=== PATIENT | female | born 1940 | race Caucasian/White ===

== ENCOUNTER 2018-07-11 11:52 | Inpatient (IN) | payer MEDICARE ==
[~2018-07-11] VITALS: Ht 167.6 cm; Wt 75.2 kg
[~2018-07-11 11:52] MED LIST: ACETAMINOPHEN 325 MG TABLET PO PRN; BISACODYL 10 MG SUPP PR PRN; DOCUSATE 100 MG CAPSULE PO PRN; POLYETHYLENE GLYCOL 17 GM PACKET PO PRN
[2018-07-11 11:55] VITALS: BP 152/84
[2018-07-11] MEDS ORDERED: PLEASE ENTER HEIGHT AND WEIGHT MC SCH (12:00)
[2018-07-11] MEDS ORDERED: OMEP10SU2 PO (12:21)
[2018-07-11] MEDS ORDERED: ACET500T76 PO (12:24)
[2018-07-11] MEDS ORDERED: FLUO20TA25 PO (12:27)
[2018-07-11] MEDS ORDERED: HYDR28CR9 TP (12:29)
[2018-07-11] MEDS ORDERED: BUSP30TA PO (12:30)
[2018-07-11] MEDS ORDERED: LORA1TAB PO (12:32)
[2018-07-11] MEDS ORDERED: ALBU8.5H8 HHN (12:34)
[2018-07-11] MEDS ORDERED: NYST15CR33 TP (12:37)
[2018-07-11] MEDS ORDERED: METO-282 PO (12:40)
[2018-07-11 12:41] VITALS: BP 152/84
[2018-07-11] MEDS ORDERED: L. R1CAP6 PO (12:41)
[2018-07-11] MEDS ORDERED: QUET100T PO (12:42)
[2018-07-11 12:43] LABS: MEAN CORPUSCULAR HEMOGLOBIN 29.4 pg (27.0-34.8); MEAN CORPUSCULAR HGB CONC 31.9 g/dL (32.4-35.8); MEAN CORPUSCULAR VOLUME 92.2 fL (80-100); MEAN PLATELET VOLUME 7.8 fL (7.4-10.4); PLATELET COUNT 324 x10^3/uL (130-400); RED BLOOD COUNT 4.42 x10^6/uL (3.82-5.3); RED CELL DISTRIBUTION WIDTH 14.7 % (9.6-15.2)
[2018-07-11] MEDS ORDERED: CETI10TA18 PO (12:43)
[2018-07-11 12:58] LABS: HCT (SEDRATE) 40.7 % (34.6-47.8)
[2018-07-11 13:00] LABS: ALBUMIN 3.5 g/dL (3.4-5.0); ANION GAP 6 mmol/L (5-15); CALCIUM 8.7 mg/dL (8.5-10.1); CHLORIDE 104 mmol/L (98-107)
[2018-07-11 13:04] LABS: MD YES
[2018-07-11 13:07] LABS: BAND#(MANUAL) 0.14 x10^3/uL; BANDS%(MANUAL) 1 % (0-7); LYMPH#(MANUAL) 11.38 x10^3/uL (1-3.4); LYMPHS% (MANUAL) 79 % (22-44); MONOS#(MANUAL) 0.43 x10^3/uL (0.3-2.7); MONOS% (MANUAL) 3 % (2-9); SEG#(MANUAL) 2.45 x10^3/uL (1.8-6.8); SEGS% (MANUAL) 17 % (42-75)
[2018-07-11 13:11] LABS: <PLATELET ESTIMATE> ADEQUATE; <PLT MORPHOLOGY> NORMAL PLT MORPH; <RBC MORPHOLOGY> NORMAL
[2018-07-11 13:29] LABS: ALANINE AMINOTRANSFERASE 14 U/L (12-78); ALKALINE PHOSPHATASE 82 U/L (45-117); BILIRUBIN,TOTAL 0.5 mg/dL (0.2-1.0); CHOL/HDL RATIO 4.8; CHOLESTEROL, TOTAL 234 mg/dL (140-239); CREATININE 0.79 mg/dL (0.55-1.02); HDL CHOL % 21 % (28-40); HDL CHOLESTEROL (DIRECT) 49 mg/dL (40-60); LDL CHOLESTEROL,CALCULATED 157 mg/dL (54-169); LDL/HDL RATIO 3.2 (0.5-3.0); T4 (THYROXINE) 8.1 mcg/dL (4.8-13.9); TOTAL PROTEIN 7.7 g/dL (6.4-8.2); TRIGLYCERIDES 140 mg/dL (50-200); VLDL CHOLESTEROL 28 mg/dL (0-25)
[2018-07-11 16:27] LABS: MICROSCOPIC AUTO
[2018-07-11 16:31] LABS: CULTURE INDICATED? YES
[2018-07-11 20:04] VITALS: BP 155/90
[2018-07-11] MEDS: NYSTATIN CRM 15GM TP SCH (21:00)
[2018-07-11] MEDS: BUSPIRONE 10 MG TABLET PO SCH (21:11)
[2018-07-11] MEDS: METOPROLOL SUCCINATE 25 MG TAB.ER.24H PO SCH (21:11)
[2018-07-11] MEDS: QUETIAPINE 100MG TABLET PO SCH (21:11)
[2018-07-12 07:19] VITALS: BP 135/81
[2018-07-12] MEDS: OMEPRAZOLE 20 MG CAPSULE.DR PO SCH (08:09)
[2018-07-12] MEDS: METOPROLOL SUCCINATE 25 MG TAB.ER.24H PO SCH ×2 (08:09→20:07)
[2018-07-12] MEDS: BUSPIRONE 10 MG TABLET PO SCH ×2 (08:09→20:07)
[2018-07-12] MEDS: CETIRIZINE 10 MG TABLET PO SCH (08:09)
[2018-07-12] MEDS: FLUOXETINE HCL 20 MG CAPSULE PO SCH (08:09)
[2018-07-12] MEDS: NYSTATIN CRM 15GM TP SCH ×2 (10:00→20:36)
[2018-07-12] MEDS: ALBUTEROL SULFATE 2.5 MG/3 ML HHN PRN (15:26)
[2018-07-12 20:00] VITALS: BP_SYST 122; BP_SYST 128; BP_DIAS 75; BP_DIAS 78
[2018-07-12] MEDS: QUETIAPINE 100MG TABLET PO SCH (20:06)
[2018-07-12] MEDS: LORazepam 1MG TABLET PO PRN (20:18)
[2018-07-13 05:11] LABS: MEAN CORPUSCULAR HGB CONC 32.4 g/dL (32.4-35.8); MEAN CORPUSCULAR VOLUME 92.7 fL (80-100); MEAN PLATELET VOLUME 7.8 fL (7.4-10.4); PLATELET COUNT 304 x10^3/uL (130-400); RED BLOOD COUNT 4.35 x10^6/uL (3.82-5.3); RED CELL DISTRIBUTION WIDTH 14.7 % (9.6-15.2)
[2018-07-13 05:47] LABS: BASOPHILS # (AUTO) 0.02 x10^3/uL (0-0.1); BASOPHILS % (AUTO) 0 % (0-1); EOSINOPHILS # (AUTO) 0.44 x10^3/uL (0-0.4); EOSINOPHILS % (AUTO) 3 % (1-7); LYMPHOCYTES # (AUTO) 9.47 x10^3/uL (1-3.4); LYMPHOCYTES % (AUTO) 69 % (22-44); MD SCAN; MONOCYTES # (AUTO) 0.71 x10^3/uL (0.2-0.8); MONOCYTES % (AUTO) 5 % (2-9); NEUTROPHILS # (AUTO) 3.01 x10^3/uL (1.8-6.8); NEUTROPHILS % (AUTO) 22 % (42-75)
[2018-07-13 07:18] VITALS: BP 132/73
[2018-07-13] MEDS: BUSPIRONE 10 MG TABLET PO SCH ×2 (08:42→20:20)
[2018-07-13] MEDS: FLUOXETINE HCL 20 MG CAPSULE PO SCH (08:42)
[2018-07-13] MEDS: CETIRIZINE 10 MG TABLET PO SCH (08:42)
[2018-07-13] MEDS: METOPROLOL SUCCINATE 25 MG TAB.ER.24H PO SCH ×2 (08:42→20:21)
[2018-07-13] MEDS: OMEPRAZOLE 20 MG CAPSULE.DR PO SCH (08:42)
[2018-07-13] MEDS: NYSTATIN CRM 15GM TP SCH ×2 (09:33→20:21)
[2018-07-13 19:54] VITALS: BP 149/78
[2018-07-13] MEDS: ALBUTEROL SULFATE 2.5 MG/3 ML HHN PRN (19:59)
[2018-07-13] MEDS: QUETIAPINE 100MG TABLET PO SCH (20:21)
[2018-07-13] MEDS: LORazepam 1MG TABLET PO PRN (20:27)
[2018-07-14 05:30] LABS: MEAN CORPUSCULAR HEMOGLOBIN 29.3 pg (27.0-34.8); MEAN CORPUSCULAR HGB CONC 31.5 g/dL (32.4-35.8); MEAN CORPUSCULAR VOLUME 92.9 fL (80-100); MEAN PLATELET VOLUME 7.7 fL (7.4-10.4); PLATELET COUNT 270 x10^3/uL (130-400); RED CELL DISTRIBUTION WIDTH 14.9 % (9.6-15.2)
[2018-07-14 06:20] LABS: MD YES
[2018-07-14 06:22] LABS: BAND#(MANUAL) 0.23 x10^3/uL; BANDS%(MANUAL) 2 % (0-7); BASOS#(MANUAL) 0.12 x10^3/uL (0-0.1); BASOS% (MANUAL) 1 % (0-1); EOS#(MANUAL) 0.47 x10^3/uL (0.0-0.4); EOS% (MANUAL) 4 % (1-7); LYMPH#(MANUAL) 7.02 x10^3/uL (1-3.4); LYMPHS% (MANUAL) 60 % (22-44); MONOS#(MANUAL) 0.23 x10^3/uL (0.3-2.7); MONOS% (MANUAL) 2 % (2-9); SEG#(MANUAL) 3.63 x10^3/uL (1.8-6.8); SEGS% (MANUAL) 31 % (42-75)
[2018-07-14 06:24] LABS: <PLATELET ESTIMATE> ADEQUATE; <PLT MORPHOLOGY> NORMAL PLT MORPH; <RBC MORPHOLOGY> NORMAL
[2018-07-14 07:23] VITALS: BP 125/71
[2018-07-14] MEDS: BUSPIRONE 10 MG TABLET PO SCH ×2 (08:37→20:44)
[2018-07-14] MEDS: METOPROLOL SUCCINATE 25 MG TAB.ER.24H PO SCH ×2 (08:37→20:45)
[2018-07-14] MEDS: FLUOXETINE HCL 20 MG CAPSULE PO SCH (08:37)
[2018-07-14] MEDS: OMEPRAZOLE 20 MG CAPSULE.DR PO SCH (08:37)
[2018-07-14] MEDS: CETIRIZINE 10 MG TABLET PO SCH (08:37)
[2018-07-14] MEDS: NYSTATIN CRM 15GM TP SCH ×2 (08:43→20:45)
[2018-07-14] MEDS: ALBUTEROL SULFATE 2.5 MG/3 ML HHN PRN (18:30)
[2018-07-14 20:00] VITALS: BP 114/70
[2018-07-14] MEDS: QUETIAPINE 100MG TABLET PO SCH (20:44)
[2018-07-14] MEDS: LORazepam 1MG TABLET PO PRN (20:44)
[2018-07-15 07:22] VITALS: BP 138/82
[2018-07-15] MEDS: NYSTATIN CRM 15GM TP SCH ×2 (09:00→20:40)
[2018-07-15] MEDS: OMEPRAZOLE 20 MG CAPSULE.DR PO SCH (09:22)
[2018-07-15] MEDS: METOPROLOL SUCCINATE 25 MG TAB.ER.24H PO SCH ×2 (09:22→20:36)
[2018-07-15] MEDS: CETIRIZINE 10 MG TABLET PO SCH (09:22)
[2018-07-15] MEDS: FLUOXETINE HCL 20 MG CAPSULE PO SCH (09:23)
[2018-07-15] MEDS: BUSPIRONE 10 MG TABLET PO SCH ×2 (09:23→20:36)
[2018-07-15 19:15] VITALS: BP 153/91
[2018-07-15] MEDS: QUETIAPINE 100MG TABLET PO SCH (20:35)
[2018-07-15 20:47] VITALS: BP 137/86
[2018-07-15] MEDS: LORazepam 1MG TABLET PO PRN (21:10)
[2018-07-16 07:27] VITALS: BP 147/74
[2018-07-16] MEDS: NYSTATIN CRM 15GM TP SCH ×2 (09:00→20:46)
[2018-07-16] MEDS: OMEPRAZOLE 20 MG CAPSULE.DR PO SCH (09:21)
[2018-07-16] MEDS: METOPROLOL SUCCINATE 25 MG TAB.ER.24H PO SCH ×2 (09:21→20:45)
[2018-07-16] MEDS: CETIRIZINE 10 MG TABLET PO SCH (09:21)
[2018-07-16] MEDS: BUSPIRONE 10 MG TABLET PO SCH ×2 (09:21→20:44)
[2018-07-16] MEDS: FLUOXETINE HCL 20 MG CAPSULE PO SCH (09:21)
[2018-07-16] MEDS ORDERED: LORA1TAB PO (13:32)
[2018-07-16] MEDS: ALBUTEROL SULFATE 2.5 MG/3 ML HHN PRN (18:45)
[2018-07-16 19:34] VITALS: BP 154/69
[2018-07-16] MEDS ORDERED: DIPHENHYDRAMINE 25 MG CAPSULE PO ONE (20:30)
[2018-07-16] MEDS: QUETIAPINE 100MG TABLET PO SCH (20:45)
[2018-07-16] MEDS: LORazepam 1MG TABLET PO PRN (21:25)
[2018-07-17 07:26] VITALS: BP 131/80
[2018-07-17] MEDS: NYSTATIN CRM 15GM TP SCH (09:00)
[2018-07-17] MEDS: BUSPIRONE 10 MG TABLET PO SCH (09:01)
[2018-07-17] MEDS: METOPROLOL SUCCINATE 25 MG TAB.ER.24H PO SCH (09:01)
[2018-07-17] MEDS: CETIRIZINE 10 MG TABLET PO SCH (09:01)
[2018-07-17] MEDS: OMEPRAZOLE 20 MG CAPSULE.DR PO SCH (09:01)
[2018-07-17] MEDS: FLUOXETINE HCL 20 MG CAPSULE PO SCH (09:01)
== END 2018-07-17 10:21 | DRG 884 ==
LOC: 3E 11:52
PROVIDERS: ADMIT Psychiatry & Neurology Psychosomatic Medicine; ATTEND Psychiatry & Neurology Psychosomatic Medicine
DX: F01.51 Vascular dementia, unspecified severity, with behavioral disturbance (principal); F13.20 Sedative, hypnotic or anxiolytic dependence, uncomplicated; R45.851 Suicidal ideations; F41.9 Anxiety disorder, unspecified; F41.1 Generalized anxiety disorder; E78.5 Hyperlipidemia, unspecified; E66.9 Obesity, unspecified; K21.9 Gastro-esophageal reflux disease without esophagitis; R59.1 Generalized enlarged lymph nodes; M54.5 Low back pain; J44.9 Chronic obstructive pulmonary disease, unspecified; F32.9 Major depressive disorder, single episode, unspecified; F10.20 Alcohol dependence, uncomplicated; R10.31 Right lower quadrant pain; Z66 Do not resuscitate; D72.829 Elevated white blood cell count, unspecified; Z51.5 Encounter for palliative care; K59.00 Constipation, unspecified; G47.00 Insomnia, unspecified; I10 Essential (primary) hypertension; K64.9 Unspecified hemorrhoids; Z91.5 Personal history of self-harm; Z88.6 Allergy status to analgesic agent; Z87.440 Personal history of urinary (tract) infections; Z79.899 Other long term (current) drug therapy; Z68.26 Body mass index [BMI] 26.0-26.9, adult
CPT/HCPCS: 36415; 74018; 80053; 80061; 81001; 82140; 82607; 84436; 84443; 85025; 85651; 86592; 87086; 93005; 94640; J7613; Q0163

== ENCOUNTER 2018-11-05 12:13 | Day surgery (SDC) | payer MEDICARE, OTHER ==
[2018-11-02 12:15] LABS: INTERNATIONAL NORMALIZED RATIO 1.04 (0.93-1.1); PROTHROMBIN TIME 10.9 Seconds (9.6-11.5)
[~2018-11-05] VITALS: Ht 167.6 cm; Wt 71.8 kg
[~2018-11-05 12:13] MED LIST changes: +ACET500T76 PO; -ACETAMINOPHEN 325 MG TABLET PO PRN; +ALBU8.5H8 HHN; -BISACODYL 10 MG SUPP PR PRN; +BUSP30TA PO; +CETI10TA18 PO; -DOCUSATE 100 MG CAPSULE PO PRN; +FLUO10TA PO; +FLUO20TA25 PO; +FLUT1AER INH; +HYDR28CR9 TP; +L. R1CAP6 PO; +LORA1TAB PO; +METO-282 PO; +NYST15CR33 TP; +OMEP10SU2 PO; -POLYETHYLENE GLYCOL 17 GM PACKET PO PRN; +QUET100T PO
[2018-11-05] MEDS ORDERED: LACTATED RINGERS 1,000 ML IV SCH (12:55)
[2018-11-05 12:58] VITALS: BP 142/89
[2018-11-05] MEDS ORDERED: HEPARIN 1,000 UNITS/ML, 10ML ONE (13:46)
[2018-11-05] MEDS ORDERED: INDOCYANINE GREEN 25 MG VIAL ONE (13:46)
[2018-11-05] MEDS ORDERED: BUPIVACAINE/PF 0.25% ONE (13:46)
[2018-11-05] MEDS ORDERED: FENTANYL PF 250 MCG/5ML ONE (13:56)
[2018-11-05] MEDS ORDERED: NEOSTIGMINE 1 MG/ML, 10ML ONE (13:58)
[2018-11-05] MEDS ORDERED: SUCCINYLCHOLINE 20 MG/ML, 10ML ONE (13:58)
[2018-11-05] MEDS ORDERED: ONDANSETRON 2MG/ML, 2ML ONE (13:58)
[2018-11-05] MEDS ORDERED: PROPOFOL 10 MG/ML, 20ML ONE (13:58)
[2018-11-05] MEDS ORDERED: ROCURONIUM 10MG/ML,5ML ONE (13:58)
[2018-11-05] MEDS ORDERED: GLYCOPYRROLATE 0.2MG/1ML, 5ML ONE (13:58)
[2018-11-05] MEDS ORDERED: DEXAMETHASONE 4 MG/ML, 1ML ONE (13:58)
[2018-11-05] MEDS ORDERED: CEFAZOLIN 1,000 MG ONE (13:58)
[2018-11-05] MEDS ORDERED: METOPROLOL 1 MG/ML, 5ML IV PRN (14:00)
[2018-11-05] MEDS ORDERED: ACETAMINOPHEN 325 MG TABLET PO PRN (14:00)
[2018-11-05] MEDS ORDERED: hydrALAzine 20 MG/ML, 1ML IV PRN (14:00)
[2018-11-05] MEDS ORDERED: OXYcodone 5 MG/5 ML ORAL.SOL UDC PO PRN ×2 (14:00→17:30)
[2018-11-05] MEDS ORDERED: ONDANSETRON 2MG/ML, 2ML IV PRN (14:00)
[2018-11-05] MEDS ORDERED: PROMETHAZINE 25 MG/ML, 1ML IV PRN ×2 (14:00→17:30)
[2018-11-05] MEDS ORDERED: LABETALOL 5MG/ML, 20ML IV PRN (14:00)
[2018-11-05] MEDS ORDERED: HYDROmorphone 2 MG/ML, 1ML IVPush PRN (14:00)
[2018-11-05] MEDS ORDERED: ONDANSETRON ODT 8 MG PO PRN (14:00)
[2018-11-05] MEDS ORDERED: LIDOCAINE PF 2%, 5ML ONE (14:36)
[2018-11-05] MEDS ORDERED: hydrALAzine 20 MG/ML, 1ML ONE (14:36)
[2018-11-05] MEDS ORDERED: EPHEDRINE 50 MG/ML, 1ML ONE (14:36)
[2018-11-05] MEDS ORDERED: FENTANYL PF 100 MCG/2ML ONE ×3 (15:36→16:53)
[2018-11-05] MEDS ORDERED: SUGAMMADEX 200 MG/2 ML IVPush ONE (16:16)
[2018-11-05] MEDS ORDERED: OXYcodone 5 MG/5 ML ORAL.SOL UDC ONE (16:53)
[2018-11-05] MEDS ORDERED: PROMETHAZINE 25 MG/ML, 1ML ONE (16:58)
[2018-11-05] MEDS: FENTANYL PF 100 MCG/2ML IV PRN ×2 (17:11→17:18)
== END 2018-11-05 21:15 | disposition home or self-care (01) ==
LOC: OUT 12:13 → EDSTATUS 17:00 → OUT 21:15
PROVIDERS: ATTEND Specialist
DX: C54.1 Malignant neoplasm of endometrium (principal); I10 Essential (primary) hypertension; J44.9 Chronic obstructive pulmonary disease, unspecified; F41.9 Anxiety disorder, unspecified; F03.90 Unspecified dementia, unspecified severity, without behavioral disturbance, psychotic disturbance, mood disturbance, and anxiety; Z79.899 Other long term (current) drug therapy; Z87.891 Personal history of nicotine dependence; Z88.8 Allergy status to other drugs, medicaments and biological substances
CPT/HCPCS: 36415; 38570; 58571; 71046; 85610; 85730; 86304; 86850; 86900; 86923; 88309; 88341; 88342; 93005; J0330; J0360; J0690; J1100; J2405; J2550; J2704; J2710; J3010; J3490; J7120; Q0162; J1644

== ENCOUNTER 2019-01-14 07:12 | Outpatient (CLI) | payer MEDICARE, OTHER | END 2019-01-14 23:59 | disposition home or self-care (01) | LOC: ROC 07:12 | PROVIDERS: ATTEND Radiology Radiation Oncology | DX: C54.1 Malignant neoplasm of endometrium (principal); Z90.710 Acquired absence of both cervix and uterus; Z90.721 Acquired absence of ovaries, unilateral; Z90.722 Acquired absence of ovaries, bilateral; Z87.891 Personal history of nicotine dependence | CPT/HCPCS: G0463 ==

== ENCOUNTER 2019-04-17 08:46 | Outpatient (CLI) | payer MEDICARE, OTHER ==
[2019-04-18] MEDS ORDERED: LOPE-114 PO (10:33)
== END 2019-04-17 23:59 | disposition home or self-care (01) ==
LOC: ROC 08:46
PROVIDERS: ATTEND Radiology Radiation Oncology
DX: Z02.9 Encounter for administrative examinations, unspecified (principal)